=== PATIENT | female | born 1950 | race Caucasian/White ===

== ENCOUNTER → 2016-10-29 | Outpatient (CLI) | payer OTHER ==
--- NOTE | 2016-10-29 15:45 | REPMRS ---
Patient History The patient states she has not had a clinical breast exam in over a year. Patient is postmenopausal. No known family history of cancer. Benign excisional biopsy of the left breast. Digital Woman Screen Mammo: October 29, 2016 - Exam #: [id number] Bilateral CC and MLO view(s) were taken. Technologist: Monica Campos, Technologist Prior study comparison: December 14, 2013, digital woman screen mammo performed at [facility] to [facility]. April 09, 2011, bilateral digital mammo screening bilat performed at [facility]. June 16, 2007, bilateral screening mammogram performed at [facility]. FINDINGS: There are scattered fibroglandular densities. There has been no change in the appearance of the mammogram from the prior studies. There is a mild amount of scattered fibroglandular density which is fairly symmetric. There is no interval development of dominant mass, architectural distortion, or clustered microcalcification suggestive of malignancy. ASSESSMENT: BI-RADS/ACR category 1 mammogram. Negative. Recommendation Routine screening mammogram in 1 year (for women over age 40). This mammogram was interpreted with the aid of an FDA-approved computer-aided dectection system. Electronically Signed By: Bryant Roberts MD 10/29/16 [id number]
== END ==
LOC: M WHC 14:54
PROVIDERS: ATTEND Physician Assistant
DX: Z12.31 Encounter for screening mammogram for malignant neoplasm of breast (principal)

== ENCOUNTER → 2017-09-30 | Outpatient (REF) | payer OTHER ==
[2017-09-30 20:19] LABS: BASO # 0.1 10^3/uL (0.0-0.2); BASO % 0.6 % (0.0-1.0); EOS # 0.3 10^3/uL (0.0-0.50); HEMATOCRIT 35.2 % (36.0-47.0); HEMOGLOBIN 10.4 g/dl (12.0-15.5); IMMATURE GRANULOCYTE % 0.3 % (0-3.0); LYMPH # 4.3 10^3/uL (1.5-4.5); LYMPH % 35.2 % (24.0-44.0); MEAN CORPUSCULAR HEMOGLOBIN 24.2 pg (27.0-33.0); MEAN CORPUSCULAR HGB CONC 29.5 g/dl (32.0-36.5); MEAN CORPUSCULAR VOLUME 81.9 fl (80.0-96.0); MONO # 0.8 10^3/uL (0.0-0.8); MONO % 6.4 % (0.0-5.0); NEUTROPHILS # 6.8 10^3/uL (1.8-7.7); NEUTROPHILS % 55.5 % (36.0-66.0); PLATELET COUNT, AUTOMATED 340 10^3/uL (150-450); RED CELL DISTRIBUTION WIDTH 15.4 % (11.5-14.5); WHITE BLOOD COUNT 12.3 10^3/uL (4.0-10.0)
[2017-10-01 16:14] LABS: CONTROL LINE MONO RF C INT CTR LINE PRESENT; MONO REFLEX EBV COMP NEGATIVE (NEGATIVE)
[2017-10-03 15:28] LABS: EBV VIRAL CAPSID AG IgM <36.0 U/mL (0.0-35.9)
[2017-10-03 15:28] LABS: EBV AB TO NUCLEAR ANTIGEN 23.9 U/mL (0.0-17.9); EBV VIRAL CAPSID AG IgG >600.0 U/mL (0.0-17.9)
== END ==
LOC: M LABDRWAD 19:26
DX: R59.0 Localized enlarged lymph nodes (principal)

== ENCOUNTER → 2017-12-24 | Outpatient (CLI) | payer OTHER | LOC: M RAD 14:50 | DX: N63.21 Unspecified lump in the left breast, upper outer quadrant (principal) | CPT/HCPCS: 77065 ==

== ENCOUNTER → 2018-02-03 | Outpatient (CLI) | payer OTHER ==
[~2018-02-03] MED LIST: ISOVUE-370 76% 100ML VIAL (Q9967) As Ordered
[2018-02-03 09:34] LABS: CREATININE FOR GFR 0.85 MG/DL (0.55-1.30); GLOMERULAR FILTRATION RATE > 60.0 (>45)
[2018-02-03 09:34] LABS: BLOOD UREA NITROGEN 13 MG/DL (7-18)
== END ==
LOC: M RAD 08:41
DX: K11.5 Sialolithiasis (principal); E07.9 Disorder of thyroid, unspecified; R59.0 Localized enlarged lymph nodes
CPT/HCPCS: Q9967

== ENCOUNTER → 2018-02-23 | Outpatient (REF) | payer OTHER ==
[2018-02-23 19:27] LABS: APPEARANCE, URINE TURBID (CLEAR); BACTERIA, URINE AUTO 2+ (NEGATIVE); BILIRUBIN, URINE AUTO NEGATIVE (NEGATIVE); BLOOD, URINE BLOOD 1+ (NEGATIVE); COLOR, URINE YELLOW (YELLOW); GLUCOSE, URINE (UA) AUTO 3+ mg/dL (NEGATIVE); KETONE, URINE AUTO NEGATIVE (NEGATIVE); LEUKOCYTE ESTERASE, URINE AUTO 3+ (NEGATIVE); NITRITE, URINE AUTO POSITIVE (NEGATIVE); PROTEIN, URINE AUTO 1+ mg/dL (NEGATIVE); RBC, URINE AUTO 15 /HPF (0-3); SPECIFIC GRAVITY URINE AUTO 1.024 (1.002-1.035); SQUAMOUS EPITHELIAL CELL UR AU 1 /HPF (0-6); UROBILINOGEN, URINE AUTO 0.2 mg/dL (0.0-2.0); WBC, URINE AUTO TNTC /HPF (0-3)
== END ==
LOC: M SFHCADAM 18:40
DX: R30.0 Dysuria (principal)

== ENCOUNTER → 2018-03-03 | Outpatient (CLI) | payer OTHER | LOC: M RAD 10:43 | DX: E04.2 Nontoxic multinodular goiter (principal) | CPT/HCPCS: 76536 ==

== ENCOUNTER → 2018-03-25 | Outpatient (REF) | payer OTHER ==
[2018-03-25 20:09] LABS: APPEARANCE, URINE HAZY (CLEAR); BACTERIA, URINE AUTO 3+ (NEGATIVE); BILIRUBIN, URINE AUTO NEGATIVE (NEGATIVE); BLOOD, URINE BLOOD NEGATIVE (NEGATIVE); COLOR, URINE YELLOW (YELLOW); GLUCOSE, URINE (UA) AUTO 3+ mg/dL (NEGATIVE); KETONE, URINE AUTO NEGATIVE (NEGATIVE); LEUKOCYTE ESTERASE, URINE AUTO 2+ (NEGATIVE); MUCUS, URINE SMALL (NEGATIVE); NITRITE, URINE AUTO POSITIVE (NEGATIVE); PROTEIN, URINE AUTO NEGATIVE (NEGATIVE); RBC, URINE AUTO 3 /HPF (0-3); SPECIFIC GRAVITY URINE AUTO 1.025 (1.002-1.035); SQUAMOUS EPITHELIAL CELL UR AU 3 /HPF (0-6); UROBILINOGEN, URINE AUTO 0.2 mg/dL (0.0-2.0); WBC, URINE AUTO 58 /HPF (0-3); YEAST LIKE CELL URINE AUTO SMALL
== END ==
LOC: M SFHCADAM 10:22
DX: N30.00 Acute cystitis without hematuria (principal)
CPT/HCPCS: 81001

== ENCOUNTER → 2019-02-18 | Outpatient (REF) | payer MEDICARE, OTHER | LOC: M SFHCADAM 13:45 | PROVIDERS: ATTEND Physician Assistant | DX: E11.65 Type 2 diabetes mellitus with hyperglycemia (principal); E78.5 Hyperlipidemia, unspecified; Z53.8 Procedure and treatment not carried out for other reasons ==

== ENCOUNTER → 2019-05-02 | Outpatient (CLI) | payer MEDICARE, OTHER ==
--- NOTE | 2019-05-02 13:28 | REP ---
BILATERAL SCREENING DIGITAL MAMMOGRAM WITH 3D TOMOSYNTHESIS: There are no palpable abnormalities or other breast complaints. The the patient states she has not had a clinical breast exam in over a year. The Tyrer-Cuzick Score is: 5.8% Comparison is 12/07/2017. There are scattered areas of fibroglandular density. There is no dominant mass, micro calcific cluster or architectural distortion that would indicate malignancy. Cutaneous markers identify skin lesions in each breast. There is a biopsy marking clip in the left breast. The biopsy was reportedly benign. There are no additional findings on 3D tomosynthesiss. The small nodular density identified in the right breast on the comparison study is no longer present. Impression: BIRADS/ACR category 2 mammogram. Benign findings. Recommendation: Routine annual screening mammography. This mammogram was interpreted with the aid of a FDA approved computer-aided detection system. A. Negative mammogram reports should not delay biopsy if a dominant or clinically suspicious mass is present. B. Not all breast cancers are identified by mammography or tomosynthesis. C. Adenosis and dense breasts may obscure an underlying neoplasm. Patient letter M1. Electronically Signed by Reji Amaro MD 05/02/2019 01:20 P
== END ==
LOC: M WHC 11:01
PROVIDERS: ATTEND Physician Assistant
DX: Z12.31 Encounter for screening mammogram for malignant neoplasm of breast (principal)

== ENCOUNTER → 2020-04-11 | Outpatient (REF) | payer MEDICARE, OTHER ==
[2020-04-12 12:38] LABS: HEMATOCRIT 38.3 % (36.0-47.0); HEMOGLOBIN 11.2 g/dl (12.0-15.5); MEAN CORPUSCULAR HEMOGLOBIN 24.1 pg (27.0-33.0); MEAN CORPUSCULAR HGB CONC 29.2 g/dl (32.0-36.5); MEAN CORPUSCULAR VOLUME 82.4 fl (80.0-96.0); PLATELET COUNT, AUTOMATED 388 10^3/uL (150-450); RED BLOOD COUNT 4.65 10^6/uL (4.00-5.40); WHITE BLOOD COUNT 10.4 10^3/uL (4.0-10.0)
[2020-04-12 13:13] LABS: CREATININE, URINE 32.4 MG/DL; MALB URINE SIEMENS 23.3 MG/L; MAU/CREAT RATIO 71.9 MCG/MG (0.0-30.0)
[2020-04-12 13:25] LABS: ALBUMIN 3.7 GM/DL (3.2-5.2); ALT/SGPT 47 U/L (12-78); BILIRUBIN,TOTAL 0.4 MG/DL (0.2-1.0); BLOOD UREA NITROGEN 12 MG/DL (7-18); CALCIUM LEVEL 8.9 MG/DL (8.8-10.2); CARBON DIOXIDE LEVEL 27 MEQ/L (21-32); CHLORIDE LEVEL 109 MEQ/L (98-107); CHOLESTEROL LEVEL 152 MG/DL (<200); CHOLESTEROL RISK RATIO 2.666 (<5); CREATININE FOR GFR 0.86 MG/DL (0.55-1.30); FOLATE > 24.0 NG/ML; FREE T4 1.07 NG/DL (0.76-1.46); GLOMERULAR FILTRATION RATE > 60.0 (>45); GLUCOSE, FASTING 143 MG/DL (70-100); HDL CHOLESTEROL 57 MG/DL (>40); LDL CHOLESTEROL 77 MG/DL (<100); NON-HDL-C 95 MG/DL; POTASSIUM SERUM 5.5 MEQ/L (3.5-5.1); SODIUM LEVEL 141 MEQ/L (136-145); TRIGLYCERIDES LEVEL 92 MG/DL (<150); VITAMIN B12 LEVEL > 2000 PG/ML
== END ==
LOC: M SFHCADAM 15:53
PROVIDERS: ATTEND Physician Assistant
DX: R14.3 Flatulence (principal); E11.65 Type 2 diabetes mellitus with hyperglycemia; E78.5 Hyperlipidemia, unspecified
CPT/HCPCS: 80053; 80061; 82043; 82607; 82746; 83036; 84439; 84443; 85027; G0463

== ENCOUNTER → 2020-05-16 | Outpatient (REF) | payer MEDICARE, OTHER | LOC: M LAB REF 12:26 | PROVIDERS: ATTEND Ophthalmology | DX: H02.834 Dermatochalasis of left upper eyelid (principal) ==

== ENCOUNTER → 2020-09-03 | Outpatient (CLI) | payer MEDICARE, OTHER ==
--- NOTE | 2020-09-03 10:27 | REPMRS ---
Patient History The patient states she has not had a clinical breast exam in over a year. No known family history of cancer. Benign excisional biopsy of the left breast. No Hormone Replacement Therapy Patient states no new changes. Patient has signed the MRS history sheet Digital Woman Screen Mammo: September 03, 2020 - Exam #: [id number] Bilateral CC and MLO view(s) were taken. Technologist: Patricia Fowler, Technologist Prior study comparison: May 02, 2019, bilateral digital woman screen mammo performed at [facility]. December 24, 2017, right breast digital mammo diagnostic unilateral, performed at [facility]. December 07, 2017, bilateral digital woman screen mammo performed at [facility]. October 29, 2016, digital woman screen mammo performed at [facility]. FINDINGS: There are scattered fibroglandular densities. The Volpara volumetric breast density category is:B. There has been no change in the appearance of the mammogram from the prior studies. There is a mild amount of scattered fibroglandular density which is fairly symmetric. There is no interval development of dominant mass, architectural distortion, or grouped microcalcification suggestive of malignancy. 3-D tomosynthesis shows no additional findings. Assessment: BI-RADS/ACR category 1 mammogram. Negative Mammogram. Recommendation Routine screening mammogram of both breasts in 1 year (for women over age 40). This patient's [facility] Lifetime Breast Cancer Risk is estimated at 5.5 %. This mammogram was interpreted with the aid of an FDA-approved computer-aided dectection system. Electronically Signed By: Bryant Roberts MD 09/03/20 1025
--- NOTE | 2020-09-03 10:36 | DEXAMM ---
INDICATION: Z13.820 OSTEOPOROSIS. COMPARISON: Comparison bone densitometry studies are dated April 09, 2011 and November 07, 2003.. TECHNIQUE: Bone density was measured using dual-energy x-ray absorptionmetry (DEXA). FINDINGS: AP SPINE L1-L4 BMD 1.307 g/cm2 Young Adult T-Score 0.9 Age Matched Z-Score 2.5. LT FEMUR, TOTAL BMD 0.909 g/cm2 Young Adult T-Score -0.8 Age Matched Z-Score 0.5. LT NECK BMD 0.818 g/cm2 Young Adult T-Score -1.6 Age Matched Z-Score 0.0. RT FEMUR, TOTAL BMD 0.923 g/cm2 Young Adult T-Score -0.7 Age Matched Z-Score 0.7. RT NECK BMD 0.826 g/cm2 Young Adult T-Score -1.5 Age Matched Z-Score 0.1. IMPRESSION: There is normal bone densitometry of the spine. There is low bone density of the left hip. There is low bone density of the right hip. The density of the spine has decreased 6.1% since the initial exam on November 07, 2003. The density of the spine decreased 0.5% since most recent exam on April 09, 2011. The density of the left hip has decreased 21.7% since initial exam on November 07, 2003. The density of the left hip has decreased 4.2% since most recent exam on April 09, 2011. The density of the right hip has decreased 20.4% since the initial exam on November 07, 2003. The density of the right hip has decreased 6.0% since the most recent exam on April 09, 2011. FOLLOW-UP: Recommendation for the next bone density exam: 2 years. <Electronically signed by Bryant Roberts > 09/03/20 1038
== END ==
LOC: M WHC 09:25
PROVIDERS: ATTEND Physician Assistant
DX: Z12.31 Encounter for screening mammogram for malignant neoplasm of breast (principal); Z13.820 Encounter for screening for osteoporosis; M85.851 Other specified disorders of bone density and structure, right thigh; M85.852 Other specified disorders of bone density and structure, left thigh

== ENCOUNTER 2020-11-03 13:34 | Observation (INO) | payer MEDICARE, OTHER ==
[~2020-11-03] VITALS: Ht 149.9 cm; Wt 70.2 kg
[2020-11-03 14:34] LABS: HEMATOCRIT 34.9 % (36.0-47.0); HEMOGLOBIN 9.9 g/dl (12.0-15.5); MEAN CORPUSCULAR HEMOGLOBIN 22.1 pg (27.0-33.0); MEAN CORPUSCULAR HGB CONC 28.4 g/dl (32.0-36.5); MEAN CORPUSCULAR VOLUME 78.1 fl (80.0-96.0); PLATELET COUNT, AUTOMATED 505 10^3/uL (150-450); RED BLOOD COUNT 4.47 10^6/uL (4.00-5.40)
[2020-11-03 14:38] LABS: WHITE BLOOD COUNT 14.6 10^3/uL (4.0-10.0)
--- NOTE | 2020-11-03 14:43 | REP ---
INDICATION: DYSPNEA/COUGH. COMPARISON: Comparison chest x-ray 12/27/2011. TECHNIQUE: Portable upright AP chest radiograph. FINDINGS: Cardiomegaly is observed. CHF pattern with vascular congestion and diffuse mild interstitial edema. There is slight blunting of the lateral pleural angles.. EKG electrodes are seen. No bony abnormality is noted. IMPRESSION: CHF pattern with vascular congestion, interstitial edema, and small bilateral effusions. Cardiomegaly.. <Electronically signed by Bryant Roberts > 11/03/20 [id number]
[2020-11-03] MEDS ORDERED: FUROSEMIDE 20MG/2ML VIAL (J1940) IV ONE ×2 (15:00→15:30)
[2020-11-03 15:12] LABS: ALBUMIN 3.7 GM/DL (3.2-5.2); ALT/SGPT 33 U/L (12-78); BILIRUBIN,DIRECT 0.2 MG/DL (0.0-0.2); BILIRUBIN,TOTAL 0.5 MG/DL (0.2-1.0); NT-PRO BNP 4191 PG/ML (<125); THYROXINE (T4) 9.3 UG/DL (4.5-12.0); TOTAL PROTEIN 7.1 GM/DL (6.4-8.2)
[2020-11-03] MEDS ORDERED: LEVE1INJ5 SC (15:14)
[2020-11-03] MEDS ORDERED: METF10004 PO (15:14)
[2020-11-03] MEDS ORDERED: AMIT50TA PO (15:14)
[2020-11-03] MEDS ORDERED: ALEN70TA82 PO (15:14)
[2020-11-03] MEDS ORDERED: ALBU8.5H INH (15:14)
[2020-11-03] MEDS ORDERED: JARD1TAB3 PO (15:14)
[2020-11-03] MEDS ORDERED: CEVI1CAP PO (15:14)
[2020-11-03] MEDS ORDERED: HUMA100I5 SC (15:14)
[2020-11-03] MEDS ORDERED: ATOR40TA75 PO (15:14)
[2020-11-03 15:20] LABS: ATYPICAL LYMPH 2 % (0-5); BASOPHILS 1 % (0-1); EOSINOPHILS 2 % (0-3); LYMPHOCYTES 47 % (16-44); MONOCYTES 4 % (0-5); NEUTROPHILS 43 % (28-66)
[2020-11-03] MEDS ORDERED: VITMTA PO (15:20)
[2020-11-03] MEDS ORDERED: CYAN100049 PO (15:20)
[2020-11-03] MEDS ORDERED: FERR325T81 PO (15:20)
[2020-11-03 15:22] LABS: ANISOCYTOSIS 2+; POIKILOCYTOSIS 2+
[2020-11-03 15:23] LABS: HYPOCHROMASIA 2+; MICROCYTOSIS 1+
[2020-11-03 15:24] LABS: PLATELET ESTIMATE INCREASED (NORMAL)
[2020-11-03] MEDS ORDERED: GLUCOSE 4GM CHEW TABLET PO PRN (15:35)
[2020-11-03] MEDS ORDERED: MOM 30ML SUSPENSION UDC PO PRN (15:35)
[2020-11-03] MEDS ORDERED: GLUCAGON INJ 1MG VIAL SC PRN (15:35)
[2020-11-03] MEDS ORDERED: MAALOX 30 ML SUSP *UDC PO PRN (15:35)
[2020-11-03 16:53] LABS: TROPONIN I < 0.02 NG/ML (< 0.10)
[2020-11-03 16:55] VITALS: BP 167/87
[2020-11-03] MEDS ORDERED: SLF 3 ML SYR IV PRN (17:10)
[2020-11-03] MEDS: HumaLOG INSULIN (NovoLOG) PER UNIT SC SCH ×2 (17:30→21:24)
[2020-11-03 20:00] VITALS: BP 168/102
[2020-11-03] MEDS ORDERED: LEVEMIR (INSULIN DETEMIR) 1 UNITS/0.01ML SC SCH (21:00)
[2020-11-03] MEDS: AMITRIPTYLINE 50 MG TAB PO SCH (21:19)
[2020-11-03] MEDS: ACETAMINOPHEN TAB 650MG DOSE (2X325MG) PO PRN (21:20)
[2020-11-03] MEDS: HEPARIN SOD (PORCINE) 5000UNITS/ML 1ML VIAL/SYRINGE SC SCH (21:20)
--- NOTE | 2020-11-03 21:34 | ECGEPIP ---
[facility] - ED Test Date: 2020-11-03 Pat Name: FAB PETERSON Department: Room: - Gender: Female Neighborhood Worker: : 1950 Requested By: Kevin Cohen Order Number: [id number] Reading MD: Betty Fitzgerald Measurements Intervals [place] Rate: 112 P: 62 ID: 140 QRS: 30 QRSD: 80 T: 140 QT: 376 QTc: 513 Interpretive Statements Sinus tachycardia Nonspecific T wave abnormality delayed r progression prolonged qtc No prior Electronically Signed on 11-03-2020 21:33:35 EDT by Betty Fitzgerald
[2020-11-03] MEDS: SLF 3 ML SYR IV SCH (22:00)
[2020-11-04] VITALS (7 sets, daily range): BP systolic 114–150; BP diastolic 61–85
[2020-11-04] MEDS ORDERED: FUROSEMIDE 40MG/4ML VIAL (J1940) IV SCH
[2020-11-04 05:09] LABS: HEMATOCRIT 35.3 % (36.0-47.0); HEMOGLOBIN 10.3 g/dl (12.0-15.5); MEAN CORPUSCULAR HEMOGLOBIN 22.3 pg (27.0-33.0); MEAN CORPUSCULAR HGB CONC 29.2 g/dl (32.0-36.5); MEAN CORPUSCULAR VOLUME 76.6 fl (80.0-96.0); PLATELET COUNT, AUTOMATED 497 10^3/uL (150-450); RED BLOOD COUNT 4.61 10^6/uL (4.00-5.40); WHITE BLOOD COUNT 12.2 10^3/uL (4.0-10.0)
[2020-11-04 05:39] LABS: BLOOD UREA NITROGEN 13 MG/DL (7-18); CARBON DIOXIDE LEVEL 31 MEQ/L (21-32); CHLORIDE LEVEL 110 MEQ/L (98-107); CREATININE FOR GFR 0.66 MG/DL (0.55-1.30); GLOMERULAR FILTRATION RATE > 60.0 (>45); GLUCOSE, FASTING 23 MG/DL (70-100); MAGNESIUM LEVEL 1.8 MG/DL (1.8-2.4); POTASSIUM SERUM 3.2 MEQ/L (3.5-5.1); SODIUM LEVEL 147 MEQ/L (136-145)
[2020-11-04] MEDS: DEXTROSE 50% 50 ML SYRINGE IV PRN (05:42)
[2020-11-04] MEDS ORDERED: POTASSIUM CHLORIDE 10 MEQ SR TABLET PO ONE (06:45)
[2020-11-04] MEDS: HumaLOG INSULIN (NovoLOG) PER UNIT SC SCH ×4 (07:30→21:00)
[2020-11-04] MEDS: POTASSIUM CHLORIDE 10 MEQ SR TABLET PO SCH ×2 (08:41→20:10)
[2020-11-04] MEDS: ATORVASTATIN 20 MG TAB PO SCH (08:41)
[2020-11-04] MEDS: FUROSEMIDE 40MG/4ML VIAL (J1940) IV SCH (08:42)
[2020-11-04] MEDS: SLF 3 ML SYR IV SCH ×3 (08:42→22:00)
[2020-11-04] MEDS: HEPARIN SOD (PORCINE) 5000UNITS/ML 1ML VIAL/SYRINGE SC SCH ×2 (08:42→20:10)
--- NOTE | 2020-11-04 09:59 | IPNPDOC ---
Subjective Date Seen The patient was seen on 11/04/20. Subjective Chief Complaint/HPI Feels less sob this am, slept well. Hypoglycemic this am. No CP. Objective Physical Examination General Exam: Positive: Alert, No Acute Distress Eye Exam: Positive: PERRLA, Conjunctiva & lids normal, EOMI; Negative: Sclera icteric ENT Exam: Positive: Atraumatic, Mucous membr. moist/pink, Pharynx Normal Neck Exam: Positive: Supple; Negative: JVD, thyromegaly Chest Exam: Positive: Clear to auscultation, Normal air movement Heart Exam: Positive: Rate Normal, Regular Rhythm, Normal S1, Normal S2; Negative: Murmurs, Rubs Telemetry: Positive: No significant arrhythmia Abdomen Exam: Positive: Normal bowel sounds, Soft; Negative: Tenderness, Hepatospenomegaly Extremity Exam: Positive: Normal pulses; Negative: Clubbing, Cyanosis, Edema Skin Exam: Positive: Nl turgor and temperature; Negative: Rash, Breakdown Neuro Exam: Positive: Normal Gait, Normal Speech, Cranial Nerves 3-12 NL, Reflexes 2+ Psych Exam: Positive: Mental status NL, Mood NL, Oriented x 3 Assessment /Plan Assessment # Acute CHF unspecified - decrease IV lasix 40 daily - repeat bmp, mg in am - awaiting echo # IDDM2 with hypoglycemia - reduce levemir - continue SS Dispo: home once echo results known Plan/VTE VTE Prophylaxis Ordered?: Yes VS, I&O, 24H, Fishbone Vital Signs/I&O Vital Signs Date Time Temp Pulse Resp B/P (MAP) Pulse Ox O2 Delivery O2 Flow Rate FiO2 11/04/20 08:00 97.0 109 18 150/85 (106) 97 Room Air I&O- Last 24 Hours up to 6 AM 11/04/20 06:00 Intake Total 600 ml Output Total 2100 ml Balance -1500 ml Laboratory Data 24H LABS Laboratory Tests 2 11/03/20 14:14: Neutrophils (%) (Auto) , Nucleated Red Blood Cells % (auto) 0.0, Neutrophils 43, Band Neutrophils 1, Lymphocytes (Manual) 47H, Monocytes (Manual) 4, Eosinophils (Manual) 2, Basophils (Manual) 1, Atypical Lymphocytes 2, Hypochromasia 2+, Poikilocytosis 2+, Anisocytosis 2+, Microcytosis 1+, Platelet Estimate INCREASED, Lactic Acid Level 1.9, Total Bilirubin 0.5, Direct Bilirubin 0.2, Aspartate Amino Transf (AST/SGOT) 23, Alanine Aminotransferase (ALT/SGPT) 33, Alkaline Phosphatase 89, Troponin I < 0.02, DJ-Msi-N-Type Natriuretic Peptide 4191H, Total Protein 7.1, Albumin 3.7, Albumin/Globulin Ratio 1.1L, Thyroid Stimulating Hormone (TSH) 2.510, Thyroxine (T4) 9.3 11/03/20 14:16: POC Glucose (Misc Panel) 93, POC Sodium (Misc Panel) 146H, POC Potassium (Misc Panel) 3.4L, POC Chloride (Misc Panel) 106, POC Total CO2 (Misc Panel) 22.0L, POC Blood Urea Nitrogen (Misc Panel 11, POC Ionized Calcium (Misc Panel) 4.9, POC Creatinine (Misc Panel) 0.7, POC Hematocrit (Misc Panel) 36.0L 11/03/20 14:18: POC Troponin I (Misc) 0.00 11/03/20 17:12: Bedside Glucose (Misc Panel) 76L 11/03/20 18:29: Troponin I < 0.02 11/03/20 20:24: Bedside Glucose (Misc Panel) 184H 11/03/20 21:36: Troponin I < 0.02 11/04/20 00:30: Troponin I 0.02 11/04/20 04:43: Nucleated Red Blood Cells % (auto) 0.0, Anion Gap 6L, Glomerular Filtration Rate > 60.0, Calcium Level 9.0, Magnesium Level 1.8 11/04/20 05:46: Bedside Glucose (Misc Panel) 251H 11/04/20 05:59: Bedside Glucose (Misc Panel) 212H 11/04/20 08:26: Bedside Glucose (Misc Panel) 108 CBC/BMP Laboratory Tests 11/03/20 14:14 11/04/20 04:43 Microbiology Microbiology 11/03/20 Respiratory Virus Panel (PCR) ([facility]) - Final, Complete WING STORM MD Nov 04, 2020 09:59
--- NOTE | 2020-11-04 13:25 | ECHO ---
ECHOCARDIOGRAM DATE OF PROCEDURE: 11/03/2020 Age: 69 Gender: Female Height: 59 inches Weight: 154 pounds Body surface area: 1.65 m2 PATIENT LOCATION: Inpatient, progressive care unit (PCU), Room 3223. REFERRING PHYSICIAN: Everette Mix M.D. INDICATION: Congestive heart failure (CHF). MEASUREMENTS: 2D Measurements: RV - 2.8 cm LV - 5.4 cm Septum 1.0 cm Posterior wall 1.0 cm Aortic root 2.4 cm LA - 3.8 cm LVEF 40% Doppler Measurements: AV - 1.44 m/sec LVOT - 0.85 m/sec MV-E 124, A 146, EA ratio 0.8 Early mitral deceleration time 169 msec E prime medial 6 A prime medial 9.6 E prime lateral 5.1 Average E/E prime ratio 22/PCWP 29.6 mmHg PV - 0.8 m/sec Pulmonary artery acceleration time 59 msec RSVP 54 mmHg questionable IVC - 1.7 cm COMMENTS: Sinus tachycardia at 110 beats per minute (bpm) without intraventricular conduction disturbance. M-mode and 2-dimensional echocardiography was performed with pulse, continuous wave, color flow and tissue Doppler studies. Left ventricle upper limits of normal to slightly dilated with normal left ventricular (LV) wall thickness. There appeared to be marked hypo- to akinesis of the mid- and distal anterior wall and apex, as well as distal inferior wall. Other left ventricular wall segments appeared to move normally. At least moderate impairment of global resting systolic function. Left atrial size at least upper limits of normal to mildly dilated with grade 1 LV diastolic dysfunction and significantly elevated mean left atrial pressure. Normal right heart chamber sizes and wall motion with single Doppler sign to suggest moderate pulmonary hypertension questionable. Normal inferior vena cava (IVC) size and collapse against an elevated central venous pressure. Normal aortic dimensions. Normal appearing aortic valvular apparatus and function. Mild degenerative changes of the mitral valvular apparatus with adequate leaflet excursion and only trace insufficiency. Normal appearing tricuspid valve with only trace insufficiency. No apparent intracardiac mass or pericardial effusion. 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
--- NOTE | 2020-11-04 14:07 | HPE ---
HISTORY AND PHYSICAL DATE OF ADMISSION: 11/03/2020 CHIEF COMPLAINT: Shortness of breath for approximately 2 weeks. HISTORY OF PRESENT ILLNESS: Caitlin is a 69-year-old woman with a history of insulin-dependent diabetes mellitus, type 2, hypertension, hyperlipidemia. She has no previous history of cardiac disease nor congestive heart failure. Over the past 2 weeks patient has had increasing shortness of breath at rest, especially with activity like climbing stairs. She had presented to urgent care, where she was prescribed antibiotics as well as prednisone. She completed a week's course of that and despite that continued to have shortness of breath. She re-presented to the urgent care today and was advised to come to the emergency room. In the emergency room patient was noted to be hemodynamically stable with oxygen saturations in excess of 95% on room air. She was tachypneic with activity. Preliminary labs show she has an NT-ProBNP of 4191 and a chest x-ray consistent with congestive heart failure. On physical exam, patient does have pitting lower extremity edema bilaterally. She denies having any chest discomfort. She has no previous history of stress testing that is to her recollection. ALLERGIES: No known drug allergies. CURRENT HOME MEDICATIONS: - albuterol inhaler four times a day as needed, which was recently prescribed - alendronate 70 mg weekly - amitriptyline 50 mg at bedtime - atorvastatin 40 mg daily - cevimeline 30 mg by mouth three times a day - vitamin B12 at 1000 mcg by mouth daily - Jardiance 25 mg daily - ferrous sulfate 325 mg by mouth daily - Levemir 40 units at bedtime - Humalog Kwik-Pen - metformin 1000 mg by mouth twice a day - multivitamin one capsule by mouth daily MEDICAL HISTORY: Notable for: 1. Insulin-dependent diabetes mellitus. 2. Hyperlipidemia. 3. Hypertension. 4. Depression. 5. Osteoporosis. 6. Vitamin B12 deficiency. 7. Iron deficiency. PAST SURGICAL HISTORY: Notable for: 1. Breast biopsy of a benign mass. 2. Tonsillectomy. 3. Orthopedic surgeries. 4. Hysterectomy. SOCIAL HISTORY: Patient is . Lives at home with her . She does not use any drugs, alcohol, or tobacco products. FAMILY HISTORY: Notable for her grandfather from heart disease. REVIEW OF SYSTEMS: All systems reviewed with the patient and otherwise negative except as mentioned in history of present illness (HPI). PHYSICAL EXAMINATION: Patient's blood pressure is 169/96, oxygen saturation 96% on room air, respiratory rate 22, pulse 113. General: The patient is alert and oriented times three. Her is at the bedside. She is in no acute distress at this time, lying in the stretcher in her room in the emergency room. Her skin is intact and warm to touch. She does have about 1+ pitting edema bilaterally. Head is atraumatic. Pupils symmetric and reactive to light. Oropharynx is clear. Oral mucosa is moist. Neck is supple. No jugular venous distention. Lung sounds are appreciated without any audible rales, wheezes, or rhonchi. Heart is S1, S2. She is tachycardic without any audible murmurs or gallops. Abdomen is protuberant, nontender, nondistended without any visible ascites. Her extremities without any cyanosis or clubbing. She has about 1+ edema bilaterally. Neurologic exam: Cranial nerves II-XII grossly intact without any focal neurologic deficits. IMAGING STUDIES: Chest x-ray consistent with congestive heart failure. Lactic acid is 1.9. Total bilirubin 0.5, AST 23, ALT 33, alkaline phosphatase 89. NT-ProBNP is 4191. Albumin is 3.7. Free T4 is 9.3. White blood cell count 14.6, hemoglobin 9.9, hematocrit 34.9, platelet counts are 505,000. IMPRESSION: 1. Acute congestive heart failure, unspecified. 2. Insulin-dependent diabetes mellitus, type 2. 3. Hyperlipidemia. 4. History of depression. PLAN: Patient will be admitted to observation status now. Monitor on telemetry on the progressive care unit (PCU). We will give her Lasix 40 mg IV three times a day. Will obtain an echocardiogram. Will cycle her troponin markers. She will be continued on her Lantus and placed on a sliding scale. We will continue with her amitriptyline also. Patient will be a full code. She will be placed on venous thromboembolism (VTE) prophylaxis. DAYA
[2020-11-04] MEDS: AMITRIPTYLINE 50 MG TAB PO SCH (20:10)
[2020-11-04] MEDS ORDERED: LEVEMIR (INSULIN DETEMIR) 1 UNITS/0.01ML SC SCH (21:00)
[2020-11-05 04:00] VITALS: BP 124/67
[2020-11-05] MEDS: DEXTROSE 50% 50 ML SYRINGE IV PRN (05:17)
[2020-11-05 06:00] VITALS: BP 129/76
[2020-11-05] MEDS: SLF 3 ML SYR IV SCH ×2 (06:00→14:07)
[2020-11-05 06:19] LABS: HEMOGLOBIN 9.6 g/dl (12.0-15.5); MEAN CORPUSCULAR HEMOGLOBIN 22.4 pg (27.0-33.0); MEAN CORPUSCULAR HGB CONC 29.1 g/dl (32.0-36.5); MEAN CORPUSCULAR VOLUME 76.9 fl (80.0-96.0); PLATELET COUNT, AUTOMATED 451 10^3/uL (150-450); RED BLOOD COUNT 4.29 10^6/uL (4.00-5.40); WHITE BLOOD COUNT 10.3 10^3/uL (4.0-10.0)
[2020-11-05 06:49] LABS: BLOOD UREA NITROGEN 15 MG/DL (7-18); CALCIUM LEVEL 8.4 MG/DL (8.8-10.2); CARBON DIOXIDE LEVEL 25 MEQ/L (21-32); CHLORIDE LEVEL 111 MEQ/L (98-107); CREATININE FOR GFR 0.83 MG/DL (0.55-1.30); GLOMERULAR FILTRATION RATE > 60.0 (>45); GLUCOSE, FASTING 132 MG/DL (70-100); MAGNESIUM LEVEL 2.2 MG/DL (1.8-2.4); POTASSIUM SERUM 3.9 MEQ/L (3.5-5.1); SODIUM LEVEL 145 MEQ/L (136-145)
[2020-11-05] MEDS: HumaLOG INSULIN (NovoLOG) PER UNIT SC SCH ×3 (07:30→16:47)
[2020-11-05 08:00] VITALS: BP 124/71
[2020-11-05] MEDS ORDERED: lisinopriL 5 MG TAB PO SCH (09:00)
[2020-11-05] MEDS ORDERED: CARVedilol 3.125 MG TAB PO SCH (09:00)
[2020-11-05] MEDS: HEPARIN SOD (PORCINE) 5000UNITS/ML 1ML VIAL/SYRINGE SC SCH (09:59)
[2020-11-05] MEDS: FUROSEMIDE 40MG/4ML VIAL (J1940) IV SCH (09:59)
[2020-11-05] MEDS: ATORVASTATIN 20 MG TAB PO SCH (10:00)
[2020-11-05] MEDS: POTASSIUM CHLORIDE 10 MEQ SR TABLET PO SCH (10:00)
[2020-11-05] MEDS ORDERED: ASPIRIN 81MG ENTERIC TABLET PO SCH (10:05)
[2020-11-05] MEDS ORDERED: CARV3.12 PO (10:07)
[2020-11-05] MEDS ORDERED: LISI-898 PO (10:07)
[2020-11-05] MEDS ORDERED: ASPI-551 PO (10:08)
[2020-11-05 10:36] VITALS: BP 124/71
--- NOTE | 2020-11-05 11:04 | DS.PDOC ---
Discharge Summary General Date of Admission Nov 03, 2020 at 13:35 Date of Discharge 11/05/2020 Attending Physician: WING STORM MD Specialist/Consultants Involve none Discharge Summary PROCEDURES PERFORMED DURING STAY: None. ADMITTING DIAGNOSES: 1. CHF unspecified DISCHARGE DIAGNOSES: 1. New-onset systolic CHF. 2. Insulin dependent DM type 2 3. HTN 4. Hyperlipidemia COMPLICATIONS/CHIEF COMPLAINT: CHF. HISTORY OF PRESENT ILLNESS: Caitlin is a 69-year-old woman with a history of insulin-dependent diabetes mellitus, type 2, hypertension, hyperlipidemia. She has no previous history of cardiac disease nor congestive heart failure. Over the past 2 weeks patient has had increasing shortness of breath at rest, especially with activity like climbing stairs. She had presented to urgent care, where she was prescribed antibiotics as well as prednisone. She completed a week's course of that and despite that continued to have shortness of breath. She re-presented to the urgent care today and was advised to come to the emergency room. In the emergency room patient was noted to be hemodynamically stable with oxygen saturations in excess of 95% on room air. She was tachypneic with activity. Preliminary labs show she has an NT-ProBNP of 4191 and a chest x-ray consistent with congestive heart failure. On physical exam, patient does have pitting lower extremity edema bilaterally. She denies having any chest discomfort. She has no previous history of stress testing that is to her recollection. HOSPITAL COURSE: Caitlin was admitted to the medical telemetry unit. She was placed on IV Lasix 40 mg every 8 hours. She diuresed well the following day and her Lasix was cut back to once a day. Echocardiogram reveals that she has a left ventricular ejection fraction estimated at 40% with no evidence of significant valvular heart disease. She does have anterior and inferior wall motion abnormalities. I have started her on aspirin, Coreg and lisinopril. I have advised her that she she will need a left heart catheterization for further cardiac stratification. She is in agreement to this I advised her that I have contacted [facility] and she's been accepted by Dr. Uriarte of the hospitalist service. She will go go there once a bed is available and undergo further cardiac stratification. Her serial troponin markers were were normal throughout her stay. She is not noted to have any arrhythmias on telemetry. She is medically stable for transfer to outside institution. DISCHARGE MEDICATIONS: Please see below. ALLERGIES: Please see below. PHYSICAL EXAMINATION ON DISCHARGE: VITAL SIGNS: Please see below. GENERAL: Alert and oriented 3 HEENT: PERRLA, EOMI, anicteric, oropharynx is clear without erythema or thrush. Patient has no facial droop. Speech is fluent and clear. No slurring NECK: Supple without any visible jugular venous distention CARDIOVASCULAR EXAMINATION: S1, S2. No audible murmur rubs or gallops RESPIRATORY EXAMINATION: Lung sounds are audible bilaterally with some minimal bibasilar rales ABDOMINAL EXAMINATION: Soft, nontender, nondistended without any ascites. Active bowel sounds EXTREMITIES: Lower extremity pitting edema is improved SKIN: No rash or jaundice NEUROLOGICAL EXAMINATION: Cranial nerves II through XII grossly intact PSYCHIATRIC EXAMINATION: Alert and oriented 4, mood is normal LABORATORY DATA: Please see below. IMAGING: CXR showed CHF, see report for details PROGNOSIS: Stable ACTIVITY: [As tolerated]. DIET: Cardiac diabetic diet DISCHARGE PLAN: DISPOSITION: Patient will be transferred to [facility] for further cardiac certification DISCHARGE INSTRUCTIONS: 1. Discharge instructions will be provided by the team at [facility] when she is discharged from there. ITEMS TO FOLLOWUP ON ON OUTPATIENT: none. DISCHARGE CONDITION: Stable TIME SPENT ON DISCHARGE: 30 minutes. Vital Signs/I&Os Vital Signs Date Time Temp Pulse Resp B/P (MAP) Pulse Ox O2 Delivery O2 Flow Rate FiO2 11/05/20 08:00 97.9 104 18 124/71 (88) 96 Room Air I&O- Last 24 Hours up to 6 AM 11/05/20 05:59 Intake Total 1460 ml Output Total 1450 ml Balance 10 ml Laboratory Data Labs 24H Laboratory Tests 2 11/04/20 12:04: Bedside Glucose (Misc Panel) 151H 11/04/20 17:25: Bedside Glucose (Misc Panel) 150H 11/04/20 20:08: Bedside Glucose (Misc Panel) 141H 11/05/20 05:14: Bedside Glucose (Misc Panel) 33*L 11/05/20 05:34: Bedside Glucose (Misc Panel) 127H 11/05/20 05:40: Nucleated Red Blood Cells % (auto) 0.0, Anion Gap 9, Glomerular Filtration Rate > 60.0, Calcium Level 8.4L, Magnesium Level 2.2 CBC/BMP Laboratory Tests 11/05/20 05:40 FSBS Laboratory Tests Test 11/04/20 12:04 11/04/20 17:25 11/04/20 20:08 11/05/20 05:14 Range/Units Bedside Glucose (Misc Panel) 151 150 141 33 80-115 MG/DL Test 11/05/20 05:34 Range/Units Bedside Glucose (Misc Panel) 127 80-115 MG/DL Microbiology Microbiology 11/03/20 Respiratory Virus Panel (PCR) ([facility]) - Final, Complete Discharge Medications Scheduled Alendronate Sodium (Alendronate Sodium) 70 Mg Tablet, 70 MG PO 1XWK, (Reported) FRIDAYS Amitriptyline HCl (Amitriptyline HCl) 50 Mg Tablet, 50 MG PO QHS, (Reported) Aspirin (Aspirin EC) 81 Mg Tablet.dr, 81 MG PO DAILY Atorvastatin Calcium (Atorvastatin Calcium) 40 Mg Tablet, 40 MG PO DAILY, (Reported) Carvedilol (Carvedilol) 3.125 Mg Tablet, 3.125 MG PO DAILY Cevimeline HCl (Cevimeline HCl) 30 Mg Capsule, 30 MG PO TID, (Reported) Cyanocobalamin (Vitamin B-12) (Vitamin B-12) 1,000 Mcg Tablet, 1,000 MCG PO DAILY, (Reported) Empagliflozin (Jardiance) 25 Mg Tablet, 25 MG PO DAILY, (Reported) Ferrous Sulfate (Iron) 325 Mg Tablet, 325 MG PO DAILY, (Reported) Insulin Detemir (Levemir Flextouch) 100 Unit/1 Ml Insuln.pen, 40 UNITS SC QHS, ( Reported) Insulin Lispro (Humalog Kwikpen U-100) 100 Unit/1 Ml Insuln.pen, 1 DOSE SC TID, (Reported) PER SLIDING SCALE Lisinopril (Lisinopril) 5 Mg Tablet, 5 MG PO DAILY Metformin HCl (Metformin HCl) 1,000 Mg Tablet, 1,000 MG PO BID, (Reported) Multivitamins (Thera M Plus Tablet) 1 Each Tablet, 1 TAB PO DAILY, (Reported) Scheduled PRN Albuterol Sulfate (Albuterol Sulfate Hfa) 8.5 Gm Hfa.aer.ad, 2 PUFF INH QID PRN for SOB/WHEEZING, (Reported) Allergies Coded Allergies: No Known Allergies (Unverified , 11/03/20) WING STORM MD Nov 05, 2020 10:29
[2020-11-05 12:00] VITALS: BP 114/63
[2020-11-05 16:00] VITALS: BP 94/46
[2020-11-05] MEDS: ACETAMINOPHEN TAB 650MG DOSE (2X325MG) PO PRN (16:21)
== END 2020-11-05 17:32 | disposition short-term general hospital (02) ==
LOC: M ED 13:34 → M ED INP 13:35 → ENRESERV 16:05 → M PCU 16:52
PROVIDERS: ADMIT Internal Medicine; ATTEND Internal Medicine
DX: I50.20 Unspecified systolic (congestive) heart failure (principal); E11.9 Type 2 diabetes mellitus without complications; Z79.4 Long term (current) use of insulin; I10 Essential (primary) hypertension; E78.5 Hyperlipidemia, unspecified; Z79.84 Long term (current) use of oral hypoglycemic drugs; Z79.899 Other long term (current) drug therapy; Z79.82 Long term (current) use of aspirin
CPT/HCPCS: 36415; 71045; 80047; 80048; 80076; 83605; 83735; 83880; 84436; 84443; 84484; 85025; 85027; 87798; 93005; 93041; 93306; 94760; 96372; 96374; 96375; 96376; 99285; G0378; J1644; J1940

== ENCOUNTER → 2022-01-28 | Outpatient (CLI) | payer MEDICARE, OTHER ==
[~2022-01-28] MED LIST changes: +ALBU8.5H INH; +ALEN70TA82 PO; +AMIT50TA PO; +ASPI-551 PO; +ATOR40TA75 PO; +CARV3.12 PO; +CEVI1CAP PO; +CYAN100049 PO; +FERR325T81 PO; +HUMA100I5 SC; -ISOVUE-370 76% 100ML VIAL (Q9967) As Ordered; +JARD1TAB3 PO; +LEVE1INJ5 SC; +LISI5TAB11 PO; +METF10004 PO; +VITMTA PO
== END ==
LOC: M LABSMTC 09:24
PROVIDERS: ATTEND Anesthesiology
DX: Z01.812 Encounter for preprocedural laboratory examination (principal); Z20.822 Contact with and (suspected) exposure to COVID-19

== ENCOUNTER 2022-01-31 07:17 | Day surgery (SDC) | payer MEDICARE, OTHER ==
[~2022-01-31] VITALS: Ht 149.9 cm; Wt 71.2 kg
[~2022-01-31 07:17] MED LIST changes: +NS 1,000 ML IV ONE
[2022-01-31] MEDS ORDERED: propofoL 200 MG/20 ML VIAL As Ordered ONE (08:03)
[2022-01-31] MEDS ORDERED: LIDOCAINE 2% 100MG/5ML SDV (FOR ANES.) As Ordered ONE (08:03)
[2022-01-31] MEDS ORDERED: fentaNYL 100 MCG/2 ML INJECTION As Ordered ONE (08:03)
[2022-01-31 09:10] VITALS: BP 117/56
== END 2022-01-31 09:26 | disposition home or self-care (01) ==
LOC: M OPP 07:17
PROVIDERS: ATTEND Internal Medicine Gastroenterology
DX: K64.0 First degree hemorrhoids (principal); D50.9 Iron deficiency anemia, unspecified; K22.89 Other specified disease of esophagus; Z98.84 Bariatric surgery status; Z79.4 Long term (current) use of insulin; Z79.82 Long term (current) use of aspirin; Z79.891 Long term (current) use of opiate analgesic; Z79.899 Other long term (current) drug therapy; Z88.8 Allergy status to other drugs, medicaments and biological substances; I10 Essential (primary) hypertension; E11.9 Type 2 diabetes mellitus without complications; E78.5 Hyperlipidemia, unspecified; I25.2 Old myocardial infarction; Z95.5 Presence of coronary angioplasty implant and graft; Z87.891 Personal history of nicotine dependence; Z79.51 Long term (current) use of inhaled steroids
CPT/HCPCS: 43239; 45378; 88305; J3010

== ENCOUNTER → 2022-02-21 | Outpatient (CLI) | payer MEDICARE, OTHER ==
[~2022-02-21] MED LIST changes: -NS 1,000 ML IV ONE
== END ==
LOC: M WHC 10:55
PROVIDERS: ATTEND Physician Assistant
DX: Z12.31 Encounter for screening mammogram for malignant neoplasm of breast (principal)

== ENCOUNTER → 2022-04-01 | Outpatient (REF) | payer MEDICARE, OTHER ==
[2022-04-01 19:52] LABS: APPEARANCE, URINE MANUAL HAZY (CLEAR); COLOR, URINE MANUAL LT YELLOW (YELLOW)
[2022-04-01 19:53] LABS: BILIRUBIN, URINE MANUAL NEGATIVE (NEGATIVE); GLUCOSE, URINE (UA) MANUAL 4+(1000 MG/DL) mg/dL (NEGATIVE); KETONE, URINE MANUAL NEGATIVE (NEGATIVE); NITRITE, URINE MANUAL POSITIVE (NEGATIVE); PROTEIN, URINE MANUAL NEGATIVE (NEGATIVE); UROBILINOGEN, URINE MANUAL NORMAL (NORMAL)
[2022-04-01 19:54] LABS: BLOOD URINE MANUAL POSITIVE (NEGATIVE); LEUKOCYTE ESTERASE, URINE MAN POSITIVE (NEGATIVE)
[2022-04-01 20:08] LABS: BACTERIA, URINE LARGE AMOUNT; HYALINE CAST, URINE NONE SEEN /lpf (0-1); SQUAMOUS EPITHELIAL CELL URINE SMALL AMOUNT /hpf (SMALL AMT); WBC, URINE 15-20 /hpf (0-3)
== END ==
LOC: M SFHCADAM 16:14
PROVIDERS: ATTEND Physician Assistant
DX: R30.0 Dysuria (principal)

== ENCOUNTER → 2023-03-16 | Outpatient (CLI) | payer MEDICARE, OTHER ==
[~2023-03-16] MED LIST changes: +ERYT5OIN25 OD; +INSU100I6 SC; -LEVE1INJ5 SC
== END ==
LOC: M WHC 10:22
PROVIDERS: ATTEND Physician Assistant
DX: Z12.31 Encounter for screening mammogram for malignant neoplasm of breast (principal)

== ENCOUNTER → 2023-03-26 | Outpatient (REF) | payer MEDICARE, OTHER | LOC: M SFHCADAM 12:00 | PROVIDERS: ATTEND Physician Assistant | DX: I25.10 Atherosclerotic heart disease of native coronary artery without angina pectoris (principal); I50.22 Chronic systolic (congestive) heart failure; E11.9 Type 2 diabetes mellitus without complications; D50.0 Iron deficiency anemia secondary to blood loss (chronic) ==

== ENCOUNTER → 2023-10-27 | Outpatient (REF) | payer MEDICARE, OTHER | LOC: M SFHCADAM 11:44 | PROVIDERS: ATTEND Physician Assistant | DX: E11.9 Type 2 diabetes mellitus without complications (principal); G30.0 Alzheimer's disease with early onset ==

== ENCOUNTER → 2024-04-28 | Outpatient (CLI) | payer MEDICARE, OTHER | LOC: M WHC 12:37 | PROVIDERS: ATTEND Physician Assistant | DX: Z12.31 Encounter for screening mammogram for malignant neoplasm of breast (principal); M85.80 Other specified disorders of bone density and structure, unspecified site ==